=== PATIENT | female | born 1985 | race African-American/Black ===

== ENCOUNTER 2022-04-12 22:15 | Emergency (ER) | payer MEDICAID ==
[~2022-04-12] VITALS: Ht 162.6 cm; Wt 75.0 kg
[2022-04-13 04:00] VITALS: BP 105/55
== END 2022-04-13 04:35 | disposition home or self-care (01) ==
LOC: ER 22:15
DX: F10.129 Alcohol abuse with intoxication, unspecified (principal); Y90.9 Presence of alcohol in blood, level not specified; R51.9 Headache, unspecified; Z87.891 Personal history of nicotine dependence; Z91.09 Other allergy status, other than to drugs and biological substances
CPT/HCPCS: 99285

== ENCOUNTER 2023-05-27 06:04 | Emergency (ER) | payer MEDICAID ==
[~2023-05-27] VITALS: Ht 170.2 cm; Wt 73.0 kg
[2023-05-27 06:12] VITALS: TEMP 98.3; O2SAT 98
[2023-05-27] MEDS ORDERED: AMOX1TAB16 MT (07:46)
[2023-05-27] MEDS ORDERED: IBUP-2029 MT (07:46)
[2023-05-27] MEDS ORDERED: HYDR-4001 MT (07:46)
[2023-05-27 08:04] VITALS: BP 150/110; PULSE 82; RESP 16
== END 2023-05-27 08:05 | disposition home or self-care (01) ==
LOC: ER 06:32
DX: H73.22 Unspecified myringitis, left ear (principal); F10.10 Alcohol abuse, uncomplicated; Y90.9 Presence of alcohol in blood, level not specified
CPT/HCPCS: 81025; 99283